=== PATIENT | male | born 1970 | race Two or more races ===

== ENCOUNTER 2025-02-13 17:38 | Emergency (ER) | payer BC, OTHER ==
[~2025-02-13] VITALS: Ht 162.6 cm; Wt 77.1 kg
[2025-02-13 18:23] VITALS: TEMP 98.4
[2025-02-13 18:49] LABS: PLATELET COUNT (AUTO) 133 K/uL (150-450); RED BLOOD CELL COUNT(AUTO) 4.52 MIL/uL (4.5-6.0); RED CELL DISTRIBUTION WIDTH 13.8 % (11.5-15.0); WHITE BLOOD COUNT (AUTO) 6.0 K/uL (4.3-11.0)
[2025-02-13] MEDS ORDERED: ONDANSETRON HCL/PF 4 MG/2 ML VIAL ONE (18:54)
[2025-02-13 18:57] LABS: CALCIUM, SERUM 9.0 mg/dL (8.5-10.1); CREATININE 0.7 mg/dL (0.6-1.3); SODIUM SERUM 138.0 mmol/L (136-145); UREA NITROGEN, BLOOD 8.0 mg/dL (7-18)
[2025-02-13] MEDS ORDERED: IV NS 0.9% 250 ML IV ONE (18:57)
[2025-02-13] MEDS ORDERED: IOHEXOL-300 100 ML VIAL IV ONE (18:57)
[2025-02-13] MEDS: IV NS 0.9% 1,000 ML BAG IV ONE (19:00)
[2025-02-13 19:03] LABS: ASPARTATE AMINOTRANSFERASE 21.0 U/L (15-37); TOTAL PROTEIN, SERUM 7.6 g/dL (6.4-8.2)
[2025-02-13] MEDS: ONDANSETRON HCL/PF 4 MG/2 ML VIAL IVP ONE (19:05)
[2025-02-13] MEDS ORDERED: SPIR25TA PO (19:11)
[2025-02-13] MEDS ORDERED: BISA10SU61 RC (19:11)
[2025-02-13] MEDS ORDERED: LACO200T2 PO (19:11)
[2025-02-13] MEDS ORDERED: NA P133E RC (19:11)
[2025-02-13] MEDS ORDERED: POLY17PO4 PO (19:11)
[2025-02-13] MEDS ORDERED: MULT-594 PO (19:11)
[2025-02-13] MEDS ORDERED: LANS30CA56 PO (19:11)
[2025-02-13] MEDS ORDERED: MAGN400O6 PO (19:11)
[2025-02-13] MEDS ORDERED: CARV3.122 PO (19:11)
[2025-02-13] MEDS ORDERED: CHOL200059 PO (19:11)
[2025-02-13] MEDS ORDERED: LORA2DIS4 IM (19:11)
[2025-02-13] MEDS ORDERED: MELA3TAB41 PO (19:11)
[2025-02-13] MEDS ORDERED: LEVO25TA9 PO (19:11)
[2025-02-13] MEDS ORDERED: THIA100T88 PO (19:11)
[2025-02-13] MEDS ORDERED: LACT10SO29 PO (19:11)
[2025-02-13] MEDS ORDERED: FURO20TA4 PO (19:11)
[2025-02-13] MEDS ORDERED: TAMS-12 PO (19:11)
[2025-02-13] MEDS ORDERED: ACET325T53 PO ×2 (19:11)
[2025-02-13] MEDS ORDERED: ACET-73 PO (19:11)
[2025-02-13] MEDS ORDERED: RIFA550T PO (19:11)
[2025-02-13] MEDS ORDERED: ONDA4TAB11 PO (19:48)
[2025-02-13 19:52] LABS: APPEARANCE,URINE CLEAR (CLEAR); BLOOD, URINE Negative Ery/uL (NEGATIVE); LEUKOCYTE ESTERASE ,URINE Negative (NEGATIVE); UGLUCOSE Negative (NEGATIVE)
[2025-02-13 19:53] LABS: NITRITE, URINE NEGATIVE (NEGATIVE)
[2025-02-13 22:33] VITALS: BP 117/74; O2SAT 96
== END 2025-02-13 22:45 ==
LOC: ER 17:41
DX: K80.70 Calculus of gallbladder and bile duct without cholecystitis without obstruction (principal); R10.13 Epigastric pain; R11.0 Nausea; K21.9 Gastro-esophageal reflux disease without esophagitis; F32.A Depression, unspecified; G40.909 Epilepsy, unspecified, not intractable, without status epilepticus; N40.0 Benign prostatic hyperplasia without lower urinary tract symptoms; Z79.899 Other long term (current) drug therapy
CPT/HCPCS: 99285; 74177; 96374; 96361; 85025; 80048; 83605; 83690; 80076; 81003; 36415; J2405; J7030; J7050; Q9967